=== PATIENT | female | born 1975 | race Two or more races ===

== ENCOUNTER 2020-09-29 12:28 | Outpatient (CLI) | payer OTHER | END 2020-10-03 07:00 | disposition home or self-care (01) | LOC: RAD 12:28 | PROVIDERS: ATTEND Surgery | DX: K59.01 Slow transit constipation (principal); K64.1 Second degree hemorrhoids; N81.6 Rectocele | CPT/HCPCS: 74018; 78266; A9541 ==

== ENCOUNTER 2020-11-14 07:16 | Outpatient (CLI) | payer OTHER | END 2020-11-14 07:18 | disposition home or self-care (01) | LOC: NUCLEAR 07:16 | PROVIDERS: ATTEND Surgery | DX: K59.01 Slow transit constipation (principal); K64.1 Second degree hemorrhoids; N81.6 Rectocele | CPT/HCPCS: 78264; A9541 ==

== ENCOUNTER 2021-01-04 11:45 | Inpatient (IN) | payer OTHER ==
[~2021-01-04] VITALS: Ht 162.6 cm; Wt 79.8 kg
[2021-01-04] MEDS ORDERED: [UNRECOGNIZED DRUG - OTHER] PO (16:01)
[2021-01-04] MEDS ORDERED: LIPITO PO (16:01)
[2021-01-04] MEDS ORDERED: AMBIEN10 MG PO (16:02)
[2021-01-04] MEDS ORDERED: VITAMIN D PO (16:02)
[2021-01-04] MEDS ORDERED: WELLBUTRIN SR150 MG PO (16:03)
[2021-01-13] MEDS ORDERED: OXYC1TAB9 PO (08:26)
[2021-01-13] MEDS ORDERED: INTESTINEX680 M1 PO (08:27)
[2021-01-13] MEDS ORDERED: IMODIUM A-D2 M2 PO (08:27)
== END 2021-01-13 11:10 | disposition home or self-care (01) | DRG 331 ==
LOC: SURH 01-09 06:55 → O/R 01-09 06:55 → SURH 01-09 07:00
PROVIDERS: ADMIT Surgery; ATTEND Surgery
PROC: 07BC4ZX Excision of Pelvis Lymphatic, Percutaneous Endoscopic Approach, Diagnostic (ICD-10-PCS; 2021-01-09)
PROC: 0UB04ZZ Excision of Right Ovary, Percutaneous Endoscopic Approach (ICD-10-PCS; 2021-01-09)
PROC: 0DJD8ZZ Inspection of Lower Intestinal Tract, Via Natural or Artificial Opening Endoscopic (ICD-10-PCS; 2021-01-09)
PROC: 0DBN4ZZ Excision of Sigmoid Colon, Percutaneous Endoscopic Approach (ICD-10-PCS; principal; 2021-01-09 07:00)
DX: K59.00 Constipation, unspecified (principal); I10 Essential (primary) hypertension; N83.291 Other ovarian cyst, right side; R00.0 Tachycardia, unspecified; K57.30 Diverticulosis of large intestine without perforation or abscess without bleeding

== ENCOUNTER 2021-07-12 06:00 | Day surgery (SDC) | payer OTHER ==
[~2021-07-12 06:00] MED LIST: AMBIEN10 MG PO; IMODIUM A-D2 M2 PO; INTESTINEX680 M1 PO; LIPITO PO; OXYC1TAB9 PO; VITAMIN D PO; WELLBUTRIN SR150 MG PO; [UNRECOGNIZED DRUG - OTHER] PO
[2021-07-12] MEDS ORDERED: NEURONTIN300 MG PO (08:45)
[2021-07-12] MEDS ORDERED: PERCOCET 5-3251 EACH PO (08:45)
[2021-07-12] MEDS ORDERED: KETO10TA2 PO (08:46)
[2021-07-12] MEDS ORDERED: DERMOPLAST PAIN78 GM TOP (08:47)
== END 2021-07-12 14:15 | disposition home or self-care (01) ==
LOC: CIR.AMB 06:00
PROVIDERS: ATTEND Surgery
DX: K64.8 Other hemorrhoids (principal)